=== PATIENT | male | born 1940 | race Caucasian/White ===

== ENCOUNTER 2017-12-04 08:19 | Inpatient (IN) | payer OTHER ==
[~2017-12-04] VITALS: Ht 172.7 cm; Wt 78.1 kg
[2017-12-04] MEDS ORDERED: ACETAMINOPHEN325 M3 PO (08:42)
[2017-12-04] MEDS ORDERED: HYDROCHLOROTHIA25 MG PO (08:43)
[2017-12-04] MEDS ORDERED: COLACE100 MG PO (08:43)
[2017-12-04] MEDS ORDERED: NOR10 PO (08:43)
[2017-12-04] MEDS ORDERED: ASPIR LOW81 MG PO (08:43)
[2017-12-04] MEDS ORDERED: OMEPRAZOLE40 M1 PO (08:44)
[2017-12-04] MEDS ORDERED: LACTULOSE10 GM/152 PO (08:44)
[2017-12-04] MEDS ORDERED: SIMVASTATIN20 M1 PO (08:44)
[2017-12-04 09:09] LABS: BASOPHIL % 0.7 % (0-2); PLATELET COUNT 242 x10^3mcL (130-400); RED CELL DISTRIBUTION WIDTH 12.9 % (11.5-14.5)
[2017-12-04 09:10] LABS: CALCIUM 8.7 mg/dL (8.5-10.1); CARBON DIOXIDE 25.9 mmol/L (21-32); CHLORIDE SERUM 106 mmol/L (98-107); CREATININE SERUM 1.1 mg/dL (0.7-1.3); GLUCOSE SERUM 129 mg/dL (74-106); SODIUM SERUM 142 mmol/L (136-145)
[2017-12-04 09:14] LABS: ALBUMIN 3.6 g/dL (3.4-5.0); ALKALINE PHOSPHATASE 58 U/L (46-116); ALT/SGPT 26 U/L (16-63); AST/SGOT 19 U/L (15-37); CHOLESTEROL 127 mg/dL (<200); CHOLESTEROL/HDL RATIO 2.6; HDL CHOLESTEROL 48 mg/dL (40-60); LIPASE 172 IU/L (73-393); TOTAL PROTEIN, SERUM 7.1 g/dL (6.4-8.2); TRIGLYCERIDES 111 mg/dL (<150)
[2017-12-04 09:18] LABS: T3 TOTAL 1.21 ng/mL
[2017-12-04 10:18] LABS: FREE T4 1.08 ng/dL (0.76-1.46); FREE THYROXINE INDEX 2.5 ug/dL (1.4-4.5); T4(THYROXINE) 7.8 ug/dL (4.7-13.3)
[2017-12-04 10:59] VITALS: BP 144/80
[2017-12-04 13:05] LABS: MAGNESIUM 1.8 mg/dL (1.8-2.4)
[2017-12-04 13:29] LABS: microscopic required? NO
[2017-12-04 13:44] LABS: UA SPECIFIC GRAVITY 1.015 (1.005-1.035); urine erythrocyte NEGATIVE (NEGATIVE)
[2017-12-04 13:56] LABS: AMPHETAMINE QUAL UR NONE DETECTED (See below)
[2017-12-04 17:31] VITALS: BP 134/82
[2017-12-04 20:27] VITALS: BP 144/76
[2017-12-05 05:18] VITALS: BP 133/76
[2017-12-05 07:55] LABS: BASOPHIL % 0.5 % (0-2); CALCIUM 8.8 mg/dL (8.5-10.1); CARBON DIOXIDE 27.3 mmol/L (21-32); CHLORIDE SERUM 103 mmol/L (98-107); CREATININE SERUM 0.9 mg/dL (0.7-1.3); GLUCOSE SERUM 106 mg/dL (74-106); PLATELET COUNT 215 x10^3mcL (130-400); POTASSIUM SERUM 3.9 mmol/L (3.5-5.1); RED CELL DISTRIBUTION WIDTH 13.3 % (11.5-14.5); SODIUM SERUM 140 mmol/L (136-145)
[2017-12-05 09:15] VITALS: BP 141/74
[2017-12-05 14:00] VITALS: BP 115/68
[2017-12-05 16:21] VITALS: BP 129/68
[2017-12-05 20:58] VITALS: BP 128/75
[2017-12-06 05:33] VITALS: BP 117/55
[2017-12-06 09:41] VITALS: BP 132/71
[2017-12-06 16:38] VITALS: BP 123/59
[2017-12-06 18:29] VITALS: BP 123/59
== END 2017-12-06 20:45 | disposition other institution (70) | DRG 310 ==
LOC: ED 08:19 → DU 10:03
PROVIDERS: Internal Medicine; Specialist
DX: I49.3 Ventricular premature depolarization (principal); I10 Essential (primary) hypertension; E11.9 Type 2 diabetes mellitus without complications; K21.9 Gastro-esophageal reflux disease without esophagitis; E78.5 Hyperlipidemia, unspecified; I25.10 Atherosclerotic heart disease of native coronary artery without angina pectoris; Z79.82 Long term (current) use of aspirin; Z79.899 Other long term (current) drug therapy; R55 Syncope and collapse
CPT/HCPCS: 83880; 84439; J7030; Q0092